=== PATIENT | female | born 1935 | race Caucasian/White ===

== ENCOUNTER → 2016-12-23 | Outpatient (CLI) | payer MEDICARE, BC | LOC: MC.RAD 10:40 | DX: Z12.31 Encounter for screening mammogram for malignant neoplasm of breast (principal) ==

== ENCOUNTER → 2019-02-09 | Outpatient (CLI) | payer MEDICARE, BC | LOC: MHCPAIN 10:12 | DX: G89.29 Other chronic pain (principal); M47.817 Spondylosis without myelopathy or radiculopathy, lumbosacral region; M54.16 Radiculopathy, lumbar region; M53.3 Sacrococcygeal disorders, not elsewhere classified | CPT/HCPCS: G0463 ==

== ENCOUNTER → 2019-02-17 | Outpatient (CLI) | payer MEDICARE, BC | LOC: MHCPAIN 10:08 | DX: M47.817 Spondylosis without myelopathy or radiculopathy, lumbosacral region (principal); M54.16 Radiculopathy, lumbar region | CPT/HCPCS: J1100; Q9967 ==

== ENCOUNTER → 2019-03-02 | Outpatient (CLI) | payer MEDICARE, BC | LOC: MHCPAIN 10:44 | DX: G89.29 Other chronic pain (principal); M47.817 Spondylosis without myelopathy or radiculopathy, lumbosacral region; M54.16 Radiculopathy, lumbar region; M53.3 Sacrococcygeal disorders, not elsewhere classified | CPT/HCPCS: G0463 ==

== ENCOUNTER → 2019-03-17 | Outpatient (CLI) | payer MEDICARE, BC | LOC: MHCPAIN 10:00 | DX: M47.817 Spondylosis without myelopathy or radiculopathy, lumbosacral region (principal); M54.16 Radiculopathy, lumbar region | CPT/HCPCS: J1100; Q9967 ==

== ENCOUNTER → 2019-03-29 | Outpatient (CLI) | payer MEDICARE, BC | LOC: MHCPAIN 10:43 | DX: G89.29 Other chronic pain (principal); M47.817 Spondylosis without myelopathy or radiculopathy, lumbosacral region; M54.16 Radiculopathy, lumbar region; M53.3 Sacrococcygeal disorders, not elsewhere classified | CPT/HCPCS: G0463 ==

== ENCOUNTER 2024-05-06 11:43 | Outpatient (RCR) | payer MEDICARE, BC ==
[2024-05-06] VITALS (9 sets, daily range): BP systolic 122–163; BP diastolic 61–85; PULSE 78–102; TEMP 97.3–98.7
[~2024-05-06] VITALS: Ht 152.4 cm; Wt 61.6 kg
[~2024-05-06 11:43] MED LIST: ALLEGRA 60MG TA60 MG PO; ALPHAG-P-0.1-10 OP; ATIVAN 0.50.5 MG/TAB PO; BENADRYL25 M2 PO; CARDIZEM CD 24240 MG PO; CEFTIN500 MG PO; COZAAR100 MG PO; ESTRACE0.5 MG PO; K-TAB20 PO; LASIX 20MG TABL20 MG PO; LODINE400 MG PO; LUMIGAN 2.5 ML2.5 M1 OP; MASON NATURAL2000 IU PO; OMNICEF 300MG300 MG PO; PROAIR HFA0.09 MG/AC IH; PROTONIX20 MG PO; RT ADVAIR 228 DISKUS IH; SINGULAIR 110 MG/TAB PO; SYNTHROID0.088 MG/T PO; TYLENOL W/COD1 UDTAB PO; TYLENOL/CODEINE1 ML PO; ZANTAC 150MG T150 MG PO; ZITHROMAX Z PA250 MG PO
[2024-05-06] MEDS ORDERED: Acetaminophen 500 MG TAB PO SCH (12:15)
[2024-05-06] MEDS ORDERED: diphenhydrAMINE 25 MG CAP PO SCH (12:15)
[2024-05-06] MEDS ORDERED: NS 250 ML IV SCH (12:15)
== END 2024-05-06 18:50 | disposition home or self-care (01) ==
LOC: EUO 11:43
DX: D64.9 Anemia, unspecified (principal)
CPT/HCPCS: J7050; P9016